=== PATIENT | female | born 1990 | race Caucasian/White ===

== ENCOUNTER 2019-05-22 05:54 | Inpatient (IN) | payer BC ==
[2019-05-22] MEDS ORDERED: Nalbuphine 10 MG/1 ML Vial IVPUSH PRN (19:46)
[2019-05-22] MEDS ORDERED: Sodium Chloride 0.9% 10 ML Syringe FLUSH PRN (19:46)
[2019-05-22] MEDS ORDERED: Ondansetron 4 MG/2 ML SDV IVPUSH PRN (19:46)
[2019-05-22] MEDS ORDERED: Lactated Ringers 1,000 ML IV SCH (20:00)
[2019-05-22] MEDS ORDERED: Oxytocin/Lactated Ringers 10 UNIT/1,000 ML BAG IV SCH ×2 (20:00)
--- NOTE | 2019-05-22 21:53 | PCM.LDHP ---
<Mary Parra - Last Filed: 05/22/19 21:44> L&D History of Present Illness - General Date of Service: 05/22/19 Admit Problem/Dx: Patient Status Order with Admit Dx/Problem 05/22/19 19:46 Patient Status [ADT] Routine Admission Diagnosis/Problem Admission Diagnosis/Problem Source of Information: Patient History Limitations: Reports: No Limitations - History of Present Illness Introduction:: Maral is a 28yoF , [place] 05/19/2019, EGA 40 08/15, who presents to labor and delivery for induction of labor. Her previous delivery was 11/23/2013 and was a vacuum assisted vaginal delivery at 41 weeks to a 7lb 10oz infant. Her blood type is B+. 04/22/2019: GBS negative 03/25/2019: influenza and TDaP immunizations given 02/18/2019: 1 hour glucose screen was 99 01/03/2019: US showed normal growth and anatomy, placenta posterior 10/21/2018: HbsAg nonreactive, gonorrhoea and chlamydia negative, RPR nonreactive , HIV negative, rubella immune - Related Data Home Medications: Home Meds Mv-Mn/Iron/FA/Herbal/Digestive [ One Tablet] 1 each PO DAILY 05/22/19 [ History] Past Medical History - Past Health History Medical/Surgical History: Denies Medical/Surgical History [employer] E[employer]OR History: Reports: Social & Family History - Family History Family Medical History: Noncontributory - Tobacco Use Smoking Status *Q: Never Smoker Second Hand Smoke Exposure: No - Caffeine Use Caffeine Use: Reports: None - Recreational Drug Use Recreational Drug Use: No H&P Review of Systems - Review of Systems: Review Of Systems: See Below General: Reports: No Symptoms HEENT: Reports: No Symptoms Pulmonary: Reports: No Symptoms Cardiovascular: Reports: No Symptoms Gastrointestinal: Reports: No Symptoms Genitourinary: Reports: No Symptoms Musculoskeletal: Reports: No Symptoms Skin: Reports: No Symptoms Psychiatric: Reports: No Symptoms Neurological: Reports: No Symptoms L&D Exam - Exam Exam: See Below - Vital Signs Vital Signs: Last Vital Signs Temp 98.1 F 05/22/19 19:46 Pulse 74 05/22/19 19:46 Resp 16 05/22/19 19:46 BP 146/88 H 05/22/19 19:46 Pulse Ox 100 12/12/19 19:46 Weight: 103.419 kg - Exam General: Alert, Oriented HEENT: Conjunctiva Clear, Mucosa Moist & [place] Neck: Supple, Trachea Midline Lungs: Clear to Auscultation, Normal Respiratory Effort Cardiovascular: Regular Rate, Regular Rhythm GI/Abdominal Exam: Normal Bowel Sounds, Soft, Non-Tender Extremities: Normal Inspection, Normal Capillary Refill Skin: Warm, Dry, Intact Psychiatric: Alert, Normal Affect, Normal Mood - Patient Data Lab Results Last 24 hrs: Laboratory Results - last 24 hr 05/22/19 05/22/19 Range/Units 19:59 19:59 WBC 8.78 (3.98-10.04) K/mm3 RBC 4.34 (3.98-5.22) M/mm3 Hgb 13.5 (11.2-15.7) gm/dl Hct 38.3 (34.1-44.9) % MCV 88.2 (79.4-94.8) fl MCH 31.1 (25.6-32.2) pg MCHC 35.2 (32.2-35.5) g/dl RDW Std Deviation 39.7 (36.4-46.3) fL Plt Count 149 L (182-369) K/mm3 MPV 11.0 (9.4-12.3) fl Neut % (Auto) 72.3 H (34.0-71.1) % Lymph % (Auto) 19.9 (19.3-51.7) % Sherman % (Auto) 5.7 (4.7-12.5) % Eos % (Auto) 1.8 (0.7-5.8) Baso % (Auto) 0.1 (0.1-1.2) % Neut # (Auto) 6.34 H (1.56-6.13) K/mm3 Lymph # (Auto) 1.75 (1.18-3.74) K/mm3 Sherman # (Auto) 0.50 H (0.24-0.36) K/mm3 Eos # (Auto) 0.16 (0.04-0.36) K/mm3 Baso # (Auto) 0.01 (0.01-0.08) K/mm3 RPR Non-reactive (NONREACTIVE) Result Diagrams: 05/22/19 19:59 Orders Last 24hrs: Active Orders 24 hr Category Date Time Status Patient Status [ADT] Routine ADT 05/22/19 19:46 Active Activity as Tolerated [RC] PFP Care 05/22/19 19:46 Active Communication Order [RC] ASDIRECTED Care 05/22/19 19:46 Active Heart Tones [RC] ASDIRECTED Care 05/22/19 19:46 Active Notify Provider [RC] PFP Care 05/22/19 19:46 Active Notify Provider [RC] PRN Care 05/22/19 19:46 Active Peripheral IV Care [RC] . DIRECTED Care 05/22/19 19:46 Active Pump Management, Intrathecal [RC] ASDIRECTED Care 05/22/19 19:47 Active Vital Signs [RC] PER UNIT ROUTINE Care 05/22/19 19:46 Active Regular Diet [DIET] Diet 05/22/19 Breakfast Active BLOOD BANK HOLD SPECIMEN [BBK] Stat Lab 05/22/19 19:46 Ordered Lactated Ringers [Ringers, Lactated] 1,000 ml Med 05/22/19 20:00 Active IV ASDIRECTED Nalbuphine [Nubain] Med 05/22/19 19:46 Active 10 mg IVPUSH Q2H PRN Ondansetron [Zofran] Med 05/22/19 19:46 Active 4 mg IVPUSH Q4H PRN Oxytocin/Lactated Ringers [Pitocin in LR 10 Units/1,000 Med 05/22/19 20:00 Active ML] 10 unit in 1,000 ml IV .CONTINUOUS Oxytocin/Lactated Ringers [Pitocin in LR 10 Units/1,000 Med 05/22/19 20:00 Active ML] 10 unit in 1,000 ml IV TITRATE Sodium Chloride 0.9% [Saline Flush] Med 05/22/19 19:46 Active 10 ml FLUSH ASDIRECTED PRN Electronic Heart Tones Ext w TOCO [WOMSER] Oth 05/22/19 19:46 Ordered Routine Electronic Heart Tones Internal [WOMSER] Per Unit Oth 05/22/19 19:46 Ordered Routine Peripheral IV Insertion Adult [OM.PC] Routine Oth 05/22/19 19:46 Ordered Resuscitation Status Routine Resus Stat 05/22/19 19:46 Ordered Medication Orders Lactated Ringer's (Ringers, Lactated) 1,000 mls @ 100 mls/hr IV ASDIRECTED HUNTER Last Admin: 05/22/19 20:11 Dose: 100 mls/hr Oxytocin/Lactated Ringer's (Pitocin In Lr 10 Units/1,000 Ml) 10 unit in 1,000 mls @ 12 mls/hr IV TITRATE HUNTER; Protocol Last Titration: 05/22/19 20:50 Dose: 6 munits/min, 36 mls/hr Titration: 05/22/19 20:30 Dose: 4 munits/min, 24 mls/hr Admin: 05/22/19 20:11 Dose: 2 munits/min, 12 mls/hr Oxytocin/Lactated Ringer's (Pitocin In Lr 10 Units/1,000 Ml) 10 unit in 1,000 mls @ 500 mls/hr IV .CONTINUOUS HUNTER Nalbuphine HCl (Nubain) 10 mg IVPUSH Q2H PRN PRN Reason: Pain Ondansetron HCl (Zofran) 4 mg IVPUSH Q4H PRN PRN Reason: Nausea/Vomiting Sodium Chloride (Saline Flush) 10 ml FLUSH ASDIRECTED PRN PRN Reason: Keep Vein Open Assessment/Plan Comment:: Assessment: Maral is a 28yoF, , [place] 05/19/2019, EGA 40 08/15, who presents to labor and delivery for induction of labor. Amniotomy preformed. Maral would like to try and avoid an epidural during labor but will let nursing staff know if she requires something for pain control. She plans to breastfeed. Plan: 1. augmentation of labor with pitocin 2. Assess pain throughout labor and epidural if she'd like for pain control 3. RPR and CBC per protocol 4. support <Abdulkadir Olivas F - Last Filed: 05/23/19 00:56> L&D History of Present Illness - General Admit Problem/Dx: Patient Status Order with Admit Dx/Problem 05/22/19 19:46 Patient Status [ADT] Routine Admission Diagnosis/Problem Admission Diagnosis/Problem H&P Review of Systems - Review of Systems: Review Of Systems: See Below L&D Exam - Exam Exam: See Below - Vital Signs Vital Signs: Last Vital Signs Temp 36.7 C 05/22/19 19:46 Pulse 74 05/22/19 19:46 Resp 16 05/22/19 19:46 BP 146/88 H 05/22/19 19:46 Pulse Ox 100 05/22/19 19:46 - Patient Data Lab Results Last 24 hrs: Laboratory Results - last 24 hr 05/22/19 05/22/19 Range/Units 19:59 19:59 WBC 8.78 (3.98-10.04) K/mm3 RBC 4.34 (3.98-5.22) M/mm3 Hgb 13.5 (11.2-15.7) gm/dl Hct 38.3 (34.1-44.9) % MCV 88.2 (79.4-94.8) fl MCH 31.1 (25.6-32.2) pg MCHC 35.2 (32.2-35.5) g/dl RDW Std Deviation 39.7 (36.4-46.3) fL Plt Count 149 L (182-369) K/mm3 MPV 11.0 (9.4-12.3) fl Neut % (Auto) 72.3 H (34.0-71.1) % Lymph % (Auto) 19.9 (19.3-51.7) % Sherman % (Auto) 5.7 (4.7-12.5) % Eos % (Auto) 1.8 (0.7-5.8) Baso % (Auto) 0.1 (0.1-1.2) % Neut # (Auto) 6.34 H (1.56-6.13) K/mm3 Lymph # (Auto) 1.75 (1.18-3.74) K/mm3 Sherman # (Auto) 0.50 H (0.24-0.36) K/mm3 Eos # (Auto) 0.16 (0.04-0.36) K/mm3 Baso # (Auto) 0.01 (0.01-0.08) K/mm3 RPR Non-reactive (NONREACTIVE) Result Diagrams: 05/22/19 19:59 Problem List Initiated/Reviewed/Updated: Yes Orders Last 24hrs: Active Orders 24 hr Category Date Time Status Patient Status [ADT] Routine ADT 05/22/19 19:46 Active Activity as Tolerated [RC] PFP Care 05/22/19 19:46 Active Communication Order [RC] ASDIRECTED Care 05/22/19 19:46 Active Heart Tones [RC] ASDIRECTED Care 05/22/19 19:46 Active Notify Provider [RC] PFP Care 05/22/19 19:46 Active Notify Provider [RC] PRN Care 05/22/19 19:46 Active Peripheral IV Care [RC] . DIRECTED Care 05/22/19 19:46 Active Pump Management, Intrathecal [RC] ASDIRECTED Care 05/22/19 19:47 Active Vital Signs [RC] PER UNIT ROUTINE Care 05/22/19 19:46 Active Regular Diet [DIET] Diet 05/22/19 Breakfast Active BLOOD BANK HOLD SPECIMEN [BBK] Stat Lab 05/22/19 19:46 Ordered Lactated Ringers [Ringers, Lactated] 1,000 ml Med 05/22/19 20:00 Active IV ASDIRECTED Nalbuphine [Nubain] Med 05/22/19 19:46 Active 10 mg IVPUSH Q2H PRN Ondansetron [Zofran] Med 05/22/19 19:46 Active 4 mg IVPUSH Q4H PRN Oxytocin/Lactated Ringers [Pitocin in LR 10 Units/1,000 Med 05/22/19 20:00 Active ML] 10 unit in 1,000 ml IV .CONTINUOUS Oxytocin/Lactated Ringers [Pitocin in LR 10 Units/1,000 Med 05/22/19 20:00 Active ML] 10 unit in 1,000 ml IV TITRATE Sodium Chloride 0.9% [Saline Flush] Med 05/22/19 19:46 Active 10 ml FLUSH ASDIRECTED PRN Electronic Heart Tones Ext w TOCO [WOMSER] Oth 05/22/19 19:46 Ordered Routine Electronic Heart Tones Internal [WOMSER] Per Unit Oth 05/22/19 19:46 Ordered Routine Peripheral IV Insertion Adult [OM.PC] Routine Oth 05/22/19 19:46 Ordered Resuscitation Status Routine Resus Stat 05/22/19 19:46 Ordered Medication Orders Lactated Ringer's (Ringers, Lactated) 1,000 mls @ 100 mls/hr IV ASDIRECTED HUNTER Last Admin: 05/22/19 20:11 Dose: 100 mls/hr Oxytocin/Lactated Ringer's (Pitocin In Lr 10 Units/1,000 Ml) 10 unit in 1,000 mls @ 12 mls/hr IV TITRATE HUNTER; Protocol Last Titration: 05/22/19 23:00 Dose: 8 munits/min, 48 mls/hr Titration: 05/22/19 20:50 Dose: 6 munits/min, 36 mls/hr Titration: 05/22/19 20:30 Dose: 4 munits/min, 24 mls/hr Admin: 05/22/19 20:11 Dose: 2 munits/min, 12 mls/hr Oxytocin/Lactated Ringer's (Pitocin In Lr 10 Units/1,000 Ml) 10 unit in 1,000 mls @ 500 mls/hr IV .CONTINUOUS HUNTER Nalbuphine HCl (Nubain) 10 mg IVPUSH Q2H PRN PRN Reason: Pain Ondansetron HCl (Zofran) 4 mg IVPUSH Q4H PRN PRN Reason: Nausea/Vomiting Sodium Chloride (Saline Flush) 10 ml FLUSH ASDIRECTED PRN PRN Reason: Keep Vein Open Assessment/Plan Comment:: I reviewed the history and physical and agree with its content.
--- NOTE | 2019-05-23 06:22 | PCM.SN ---
- Free Text/Narrative Note: Delivery note: Maral is a 28-year-old 2 now para 2002 female who is admitted at 40-3/ 7 weeks gestational age on 05/22/2019 for elective induction of labor. She was started on Pitocin and then underwent artificial rupture membranes with resultant clear amniotic fluid. She progressed slowly in labor until the a.m. of 05/23/2019 she then began pushing. She had a deceleration in heart rate to the 80s and 90s and after several spontaneous pushing contractions decision was made to proceed with vacuum extraction delivery. During the course of her labor she had 1 dose of Nubain but had no other analgesia in place. At 0554 hrs. on 05/23/2019 that extraction was performed. In 2 contractions the baby's head delivered. There were no pop offs. A positive turtle sign occurred indicating probable possible shoulder dystocia. Shoulder dystocia was diagnosed and with rotational maneuvers and suprapubic pressure the shoulder was dislodged and the baby was delivered. Baby was delivered in a right occiput anterior position having rotated around from right occiput posterior. The perineum remained intact and patient required no suturing. The baby was completely delivered and was placed initially on mom's abdomen. Decision was made to clamp the cord, cut it and to take the baby to the warmer for evaluation. Baby did well however had Apgars of 8 and 9, a weight of 3980 g (8 pounds 12.4 ounces) and a length of 22 inches. Upon delivery the Pitocin was increased to 500 mL per hour per protocol 2 increase tone and uterus decrease likelihood of bleeding. Estimated blood loss was about 300 mL. The vagina and vulva were visualized and no stitches were required. The delivered in a Martin presentation, appeared intact and complete and was discarded per patient desire. Patient plans to breast-feed. Condition good.
[2019-05-23] MEDS ORDERED: fentaNYL 100 MCG/2 ML SDV EPIDUR PRN (06:51)
[2019-05-23] MEDS ORDERED: ePHEDrine 50 MG/ML SDV IVPUSH PRN (06:51)
[2019-05-23] MEDS ORDERED: Ondansetron 4 MG/2 ML SDV IVPUSH PRN (06:51)
[2019-05-23] MEDS ORDERED: fentaNYL/Bupivacaine/NS 2 MCG-0.125% 250 ML EPIDUR PRN (06:51)
[2019-05-23] MEDS ORDERED: Docusate Sodium 100 MG Cap PO PRN (07:37)
[2019-05-23] MEDS ORDERED: Ibuprofen 600 MG Tab PO PRN (07:37)
[2019-05-23] MEDS ORDERED: Benzocaine/Menthol 20%-0.5% Spray 56 GM Canister TOP PRN (07:37)
[2019-05-23] MEDS ORDERED: Witch Hazel Medicated Pads 40/Jar TOP PRN (07:37)
[2019-05-23] MEDS ORDERED: Acetaminophen 325 MG Tab PO PRN (07:37)
--- NOTE | 2019-05-24 08:42 | PCM.DCSUM1 ---
Discharge Summary - Hospital Course Diagnosis: Stroke: No - Discharge Data Discharge Date: 05/24/19 Discharge Disposition: Home, Self-Care 01 Condition: Good - Referral to Home Health Primary Care Physician: Cleo Chapman PA-C - Patient Instructions Diet: Usual Diet as Tolerated Activity: No Strenuous Activities Driving: May Drive Today Showering/Bathing: May Shower Notify Provider of: Fever, Increased Pain, Swelling and Redness, Drainage, Nausea and/or Vomiting - Discharge Plan *PRESCRIPTION DRUG MONITORING PROGRAM REVIEWED*: No *COPY OF PRESCRIPTION DRUG MONITORING REPORT IN PATIENT CLEO: No Home Medications: Home Meds Mv-Mn/Iron/FA/Herbal/Digestive [ One Tablet] 1 each PO DAILY 05/22/19 [ History] Referrals: Abdulkadir Olivas MD [Physician] - (2 weeks) - Discharge Summary/Plan Comment DC Time >30 min.: No - General Info Functional Status: Reports: Pain Controlled - Review of Systems General: Reports: No Symptoms HEENT: Reports: No Symptoms Pulmonary: Reports: No Symptoms Cardiovascular: Reports: No Symptoms Gastrointestinal: Reports: No Symptoms Genitourinary: Reports: No Symptoms Musculoskeletal: Reports: No Symptoms Skin: Reports: No Symptoms Neurological: Reports: No Symptoms Psychiatric: Reports: No Symptoms - Patient Data Vitals - Most Recent: Last Vital Signs Temp 36.4 C 05/24/19 02:49 Pulse 53 L 05/24/19 02:49 Resp 16 05/24/19 02:49 BP 126/80 05/24/19 02:49 Pulse Ox 99 05/24/19 02:49 Weight - Most Recent: 103.419 kg I&O - Last 24 hours: Intake & Output 05/23/19 05/24/19 05/24/19 22:59 06:59 14:59 Intake Total 180 Balance 180 Med Orders - Current: Current Medications Acetaminophen (Tylenol) 650 mg PO Q4H PRN PRN Reason: mild pain or fever Benzocaine/Menthol (Dermoplast Pain Relief [place]) 0 gm TOP ASDIRECTED PRN PRN Reason: Perineal Comfort Measure Last Admin: 05/23/19 08:20 Dose: 1 canister Docusate Sodium (Colace) 100 mg PO BID PRN PRN Reason: Constipation Ibuprofen (Motrin) 600 mg PO Q4H PRN PRN Reason: Mild pain or fever Witch Shruti (Tucks) 1 pad TOP ASDIRECTED PRN PRN Reason: Pain Last Admin: 05/23/19 08:20 Dose: 1 tub Discontinued Medications Ephedrine Sulfate (Ephedrine Sulfate) 5 mg IVPUSH ASDIRECTED PRN PRN Reason: Hypotension Fentanyl (Sublimaze) 100 mcg EPIDUR Q3H PRN PRN Reason: Pain Fentanyl/Bupivacaine HCl (Fentanyl/Bupivacaine/Ns 2 Mcg-0.125% 250 Ml) 0 ml EPIDUR CONTINUOUS PRN PRN Reason: Pain Lactated Ringer's (Ringers, Lactated) 1,000 mls @ 100 mls/hr IV ASDIRECTED HUNTER Last Admin: 05/22/19 20:11 Dose: 100 mls/hr Oxytocin/Lactated Ringer's (Pitocin In Lr 10 Units/1,000 Ml) 10 unit in 1,000 mls @ 12 mls/hr IV TITRATE HUNTER; Protocol Last Titration: 05/23/19 05:56 Dose: 500 mls/hr Oxytocin/Lactated Ringer's (Pitocin In Lr 10 Units/1,000 Ml) 10 unit in 1,000 mls @ 500 mls/hr IV .CONTINUOUS HUNTER Nalbuphine HCl (Nubain) 10 mg IVPUSH Q2H PRN PRN Reason: Pain Last Admin: 05/23/19 04:03 Dose: 10 mg Ondansetron HCl (Zofran) 4 mg IVPUSH Q4H PRN PRN Reason: Nausea/Vomiting Ondansetron HCl (Zofran) 4 mg IVPUSH ONETIME PRN PRN Reason: Nausea/Vomiting Sodium Chloride (Saline Flush) 10 ml FLUSH ASDIRECTED PRN PRN Reason: Keep Vein Open - Exam General: Reports: Alert, Oriented HEENT: Reports: Pupils Equal, Pupils Reactive, EOMI, Mucous Membr. Moist/[place] Neck: Reports: Supple Lungs: Reports: Clear to Auscultation, Normal Respiratory Effort Cardiovascular: Reports: Regular Rate, Regular Rhythm GI/Abdominal Exam: Normal Bowel Sounds, Soft, Non-Tender, No Organomegaly, No Distention, No Abnormal Bruit, No Mass, Pelvis Stable Rectal (Female) Exam: Normal Exam, Normal Rectal Tone Back Exam: Reports: Normal Inspection, Full Range of Motion Extremities: Normal Inspection, Normal Range of Motion, Non-Tender, No Pedal Edema, Normal Capillary Refill Skin: Reports: Warm, Dry, Intact Wound/Incisions: Reports: Healing Well Neurological: Reports: No New Focal Deficit Psy/Mental Status: Reports: Alert, Normal Affect, Normal Mood
[2019-05-24 09:18] VITALS: BP 119/68; PULSE 56
== END 2019-05-24 15:55 | disposition home or self-care (01) | DRG 560 ==
LOC: JD.OB 05:54 → OBSVTOIN 05-23 05:54 → JD.OB 05-23 05:55
PROVIDERS: ADMIT Obstetrics & Gynecology; ATTEND Obstetrics & Gynecology
PROC: 10D07Z6 Extraction of Products of Conception, Vacuum, Via Natural or Artificial Opening (ICD-10-PCS; principal; 2019-05-23)
PROC: 10907ZC Drainage of Amniotic Fluid, Therapeutic from Products of Conception, Via Natural or Artificial Opening (ICD-10-PCS; 2019-05-23)
PROC: 3E033VJ Introduction of Other Hormone into Peripheral Vein, Percutaneous Approach (ICD-10-PCS; 2019-05-23)
DX: O48.0 Post-term pregnancy (principal); Z3A.40 40 weeks gestation of pregnancy; Z37.0 Single live birth; O76 Abnormality in fetal heart rate and rhythm complicating labor and delivery; O66.0 Obstructed labor due to shoulder dystocia
CPT/HCPCS: 36415; 59025; 59409; 85025; 86592; A9270-GY; J2300; J2590; J7120

== ENCOUNTER 2022-06-23 07:03 | Inpatient (IN) | payer BC ==
[2022-06-23] MEDS ORDERED: Lidocaine 1% 50 ML MDV INJECT PRN (07:21)
[2022-06-23] MEDS ORDERED: Calcium Carbonate 500 MG Tab.Chew PO PRN (07:21)
[2022-06-23] MEDS ORDERED: Ondansetron 4 MG/2 ML SDV IVPUSH PRN (07:21)
[2022-06-23] MEDS ORDERED: Nalbuphine 10 MG/0.5 ML Syringe IVPUSH PRN (07:21)
[2022-06-23] MEDS ORDERED: Sodium Chloride 0.9% 10 ML Syringe FLUSH PRN (07:21)
[2022-06-23] MEDS ORDERED: Lactated Ringers 1,000 ML IV SCH (07:30)
[2022-06-23] MEDS ORDERED: Oxytocin/Lactated Ringers 10 UNIT/1,000 ML BAG IV SCH ×2 (07:30→08:15)
[2022-06-23] MEDS ORDERED: Sodium Chloride 0.9% 10 ML Syringe FLUSH SCH (09:00)
[2022-06-23] MEDS ORDERED: Benzocaine/Menthol 20%-0.5% Spray 78 GM Cannister TOP PRN (17:35)
[2022-06-23] MEDS ORDERED: Docusate Sodium 100 MG Cap PO PRN (17:35)
[2022-06-23] MEDS ORDERED: Witch Hazel Medicated Pads 40/Jar TOP PRN (17:35)
[2022-06-23] MEDS: Ibuprofen 600 MG Tab PO PRN (21:45)
[2022-06-23] MEDS: Acetaminophen 325 MG Tab PO PRN (23:30)
[2022-06-24] MEDS: Ibuprofen 600 MG Tab PO PRN ×2 (02:36→08:15)
[2022-06-24] MEDS: Acetaminophen 325 MG Tab PO PRN ×2 (04:33→11:27)
[2022-06-24] MEDS ORDERED: Prenatal Multivitamin with Calcium/Folic Acid/Iron Tab PO SCH (09:00)
[2022-06-24 16:08] VITALS: BP 108/59; PULSE 57
== END 2022-06-24 18:52 | disposition home or self-care (01) | DRG 560 ==
LOC: JD.OB 07:03 → OBSVTOIN 16:48 → JD.OB 16:49
PROVIDERS: ADMIT Obstetrics & Gynecology; ATTEND Obstetrics & Gynecology
PROC: 10E0XZZ Delivery of Products of Conception, External Approach (ICD-10-PCS; principal; 2022-06-23)
PROC: 10907ZC Drainage of Amniotic Fluid, Therapeutic from Products of Conception, Via Natural or Artificial Opening (ICD-10-PCS; 2022-06-23)
DX: O77.0 Labor and delivery complicated by meconium in amniotic fluid (principal); Z3A.39 39 weeks gestation of pregnancy; Z37.0 Single live birth; Z15.89 Genetic susceptibility to other disease
CPT/HCPCS: 36415; 59025; 59409; 85025; 86592; A9270-GY; J2300; J2590; J7120